=== PATIENT | female | born 1940 | race Caucasian/White ===

== ENCOUNTER 2024-02-27 17:56 | Emergency (ER) | payer MEDICARE, BC, SELFPAY ==
[2024-02-27 17:57] VITALS: BMI 27.3
[2024-02-27 18:20] VITALS: BP 187/76; PULSE 84; RESP 19; TEMP 37.1; O2SAT 96
--- NOTE | 2024-02-27 18:21 | XR_ITS ---
Examination: Foot, right, 3 views Technique: AP, oblique, lateral views foot, 3 views Date and time of exam: February 27, 2024 1824 hours INDICATIONS: Onset right foot pain today no injury FINDINGS: Negative scan osteopenia Moderate narrowing first metatarsophalangeal joint No fracture 5 mm plantar bony calcaneal spur No erosive arthritis No opaque foreign body Mild narrowing tibiotalar joint Mild narrowing intertarsal joints IMPRESSION: Moderate narrowing first metatarsophalangeal joint Further mild osteoarthritis as above 5 mm plantar bony calcaneal spur
--- NOTE | 2024-02-27 18:21 | EDRME_ITS ---
Rapid Medical Screening Exam E Arrival date/time: 02/27/24 17:56 Chief Complaint: Ankle/Foot Injury Time Seen by Provider: 02/27/24 18:14 Vital signs: Vital Signs Temperature 98.8 F 02/27/24 18:20 Pulse Rate 84 02/27/24 18:20 Respiratory Rate 19 02/27/24 18:20 Blood Pressure 187/76 H 02/27/24 18:20 Pulse Oximetry (%) 96 02/27/24 18:20 Oxygen Delivery Method Room Air 02/27/24 18:20 [facility] Narrative: Right foot pain started today, no injury. Denies redness or swelling.
[2024-02-27] MEDS: IBUPROFEN TAB 600 MG TABLET PO (19:13)
--- NOTE | 2024-02-27 20:11 | EDNOTE_ITS ---
Lower Extremity Injury RME/HPI General Chief Complaint: Ankle/Foot Injury Stated Complaint: RIGHT FOOT RAHMAN SINCE 1400 TODAY, NO INJURY Time Seen by Provider: 02/27/24 18:14 Arrival date/time: 02/27/24 17:56 RME / HPI RME / HPI Narrative: 83-year-old female patient came in for evaluation regarding right foot pain. Onset of symptoms since 2 PM today patient was raking leaves outside, and suddenly developed pain to the right foot described as dull ache, severity mild. Patient denies any direct trauma or fall. Denies any redness denies any other complaints no medication was taken prior travel. Related Data Home Medications ?Medication ?Instructions ?Recorded ?Confirmed gabapentin 100 mg capsule 300 mg PO BID #0 caps 10/28/13 08/14/23 metoprolol succinate 50 mg 50 mg PO QDAY ##0 10/28/13 08/14/23 tablet,extended release 24 hr (Toprol XL) omeprazole 20 mg capsule,delayed 20 mg PO QDAY ##0 10/28/13 08/14/23 release (Prilosec) Multivitamins * (CENTRUM *) 0.5 tab PO QDAY #0 tabs 12/02/14 08/14/23 aspirin 81 mg chewable tablet 81 mg PO MARCI ##0 12/02/14 08/14/23 calcium carb-ergocalciferol (vit 0.5 tab PO HS 01/20/23 08/14/23 D2) 600 mg calcium-200 unit tablet losartan 100 mg tablet 100 mg PO QDAY 01/20/23 08/14/23 rosuvastatin 10 mg tablet 10 mg PO QDAY 01/20/23 08/14/23 Allergies Allergy/AdvReac Type Severity Reaction Status Date / Time iodine Allergy Severe Hives Verified 02/27/24 17:59 Review of Systems Review of Systems Narrative Review of Systems: Review of system reviewed and within normal limits except mentioned in HPI ED Exam Narrative Physical exam: VITAL SIGNS: Reviewed. GENERAL APPEARANCE: Alert and interactive, follows commands, no acute distress, HEAD AND FACE: Non-traumatic. ENT: PERRL, pink conjunctivitis, eyelid no trauma, Mucous membrane moist. NECK: Supple, nontender, no nuchal rigidity. RECTAL: Deferred. GENITAL: Deferred. NEUROLOGICAL: Gross motor function intact sensory function intact, Appropriate for age. MUSCULOSKELETAL: low back nontender, full range of motion. EXTREMITIES: Right midfoot tenderness, no swelling no deformity no redness, full range of motion. SKIN: Color pink, dry, no rash, no lacerations, no abrasions, no contusions. LYMPHATICS: Deferred. Course Quality Measures none Orders Category Date Time Status XR foot comp RT min 3V Stat Exams 02/27/24 18:21 Completed Ibuprofen Tab [Motrin Tab] Med 02/27/24 18:21 Discontinued 600 mg PO X1 ONE Vital Signs Vital signs: Vital Signs Temperature 98.8 F 02/27/24 18:20 Pulse Rate 84 02/27/24 18:20 Respiratory Rate 19 02/27/24 18:20 Blood Pressure 187/76 H 02/27/24 18:20 Pulse Oximetry (%) 96 02/27/24 18:20 Oxygen Delivery Method Room Air 02/27/24 18:20 Extremity Injury, Lower MDM Narrative MDM Narrative:: 83-year-old female patient came in for evaluation regarding right foot pain. Onset of symptoms since 2 PM today patient was raking leaves outside, and suddenly developed pain to the right foot described as dull ache, severity mild. Patient denies any direct trauma or fall. Denies any redness denies any other complaints no medication was taken prior travel. X-ray of the foot came back unremarkable. I asked the patient to ambulate, and she was ambulating. Without any difficulty Patient data External records reviewed:: None Clinical information provided by:: patient Social determinants that could affect healthcare access:: none Patient has the following chronic illnesses:: Hypertension How is presenting disease/condition affected by chronic disease/condition?: no chronic disease Evaluation data The following diagnostics were reviewed and interpreted by me:: radiology exam(s) Lab and/or radiology exams considered but not ordered:: None Interpretation Summary: X-ray of the foot showed Moderate narrowing first metatarsophalangeal joint Further mild osteoarthritis as above 5 mm plantar bony calcaneal spur Medications / Prescriptions Medications or Prescriptions considered but not ordered:: None Medication administrations:: Medication Administration History Discontinued Medications Ibuprofen (Ibuprofen Tab 600 Mg Tablet) 600 mg PO X1 ONE Stop: 02/27/24 18:22 Last Admin: 02/27/24 19:13 Dose: 600 mg Documented By: MAUREEN Fish Consultations Consultation(s) initiated? (list below): No Diagnosis Extremity Injury, Lower Differential Diagnosis: ankle sprain and strain and other (Foot sprain foot pain) Most likely diagnosis given after review of the tests above:: Foot sprain Admission Indicated Admission indicated?: not indicated Explain why admission is indicated or not indicated:: Stable Admission Request Was there a request for admission?: No Disposition Plan Disposition Plan: Discharge Discharge Attestation Discharge Attestation: The patient and all family members were given an opportunity to ask questions and understood the discharge instructions. Discharge instructions specifically effects, indications for sooner follow up or return to the emergency department, and the expected course of current diagnosis. Patient condition: Stable Discharge Plan Plan Patient Disposition: HOME (Self Care) Disposition Comment: stable Prescriptions/Referrals Prescriptions/Med Rec: No Action metoprolol succinate [Toprol XL] 50 MG tablet extended release 24 hr 50 mg PO QDAY Qty: 0 gabapentin 100 MG capsule 300 mg PO BID Qty: 0 omeprazole [Prilosec] 20 MG capsule,delayed release(DR/EC) 20 mg PO QDAY Qty: 0 Patient Comments: TO [employer]CR[employer] aspirin 81 MG tablet,chewable 81 mg PO MARCI Qty: 0 Multivitamins * (CENTRUM *) 1 EACH tablet 0.5 tab PO QDAY Qty: 0 Calcium + Vitamin D 600 mg calcium- 200 unit Tablet 0.5 tab PO HS losartan 100 mg Tablet 100 mg PO QDAY rosuvastatin 10 mg Tablet 10 mg PO QDAY Referrals: Serge Conner MD [Primary Care Provider] - In 1 week Problem List Clinical Impression: Foot sprain Patient/Caregiver Discharge Instructions Discharge Activity: activity as tolerated Education Materials: ED Foot Sprain Additional Instructions: Thank you for the opportunity for serving you today. You are stable for discharged . You are advised to: Follow-up with your PCP in 1 to 2 days Return to ED for worsening of symptoms Increase oral fluids Take [id number] Tylenol or Motrin as needed for pain Print Language: Hungarian Stand Alone Forms: [facility] Award Info., Patient Portal Info Letter
[2024-02-27 20:17] VITALS: RESP 18
== END 2024-02-27 20:18 | disposition home or self-care (01) ==
PROVIDERS: Emergency Provider Emergency Medicine; PCP Family Medicine
DX: S93.601A Unspecified sprain of right foot, initial encounter (principal); X58.XXXA Exposure to other specified factors, initial encounter; Y93.H1 Activity, digging, shoveling and raking
CPT/HCPCS: 73630; 99283; A9270

== ENCOUNTER → 2024-12-09 | Outpatient (CLI) | payer MEDICARE, BC, SELFPAY ==
--- NOTE | 2024-12-09 14:05 | XR_ITS ---
Examination: Bone densitometry Date and time of exam: December 09, 2024, 1404 hours INDICATIONS: Hysterectomy age 32 vitamin D and calcium 10 years, estrogen 32 years, personal history of osteoporosis Technique: Lumbar spine and hip total bone mineralization values of an calculated. Peak reference and age match control results have been displayed. Findings: Lumbar spine total bone mineralization is 0.928 gm/cm2. This is 1.1 standard deviations below peak reference. This is 1.7 standard deviations above age-matched controls. Hip total bone mineralization is 0.746 gm/cm2 This is 1.6 standard deviations below peak reference. This is 0.6 standard deviations above age-matched controls Impression: There is osteopenia based on lumbar spine measurements. There is osteoporosis based on hip measurements Lumbar mineralization is increased 1.7% compared with December 05, 2022. Hip mineralization is decreased 5.1% compared with December 05, 2022
== END | disposition home or self-care (01) ==
LOC: CDIM 13:32
PROVIDERS: Referring Provider Internal Medicine; Visit Provider Internal Medicine
DX: M85.88 Other specified disorders of bone density and structure, other site (principal); M81.0 Age-related osteoporosis without current pathological fracture
CPT/HCPCS: 77080